=== PATIENT | female | born 1960 | race Caucasian/White ===

== ENCOUNTER 2019-02-24 11:51 | Emergency (ER) | payer OTHER ==
--- NOTE | 2019-02-24 12:20 | ER Document Report ---
ED Medical Screen (RME) - General Chief Complaint: Feet Swelling Stated Complaint: POST OP PROBLEMS Time Seen by Provider: 02/24/19 12:17 Mode of Arrival: Ambulatory Information source: Patient Notes: 58-year-old female presents to ED for complaint of bilateral pedal edema. 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 She states that 2 weeks after the surgery she was given the okay by her surgeon to move to this area. She states she could not drive in the truck but she could fly. On February 15 she flew to [place]. She states she drove to [place] only stopping [address] She states then yesterday she drove to [place] and back. She states the swelling started about 2 weeks ago when she drove to [place] and is slowly increased even more so after driving to [place]. I have greeted and performed a rapid initial assessment of this patient. A comprehensive ED assessment and evaluation of the patient, analysis of test results and completion of medical decision making process will be conducted by an additional ED providers. Dictation of this chart was performed using voice recognition software; therefore, there may be some unintended grammatical errors. TRAVEL OUTSIDE OF THE [place] IN LAST 30 DAYS: No - Related Data Allergies/Adverse Reactions: bupropion [From Wellbutrin] Allergy (Verified 02/24/19 11:54) Penicillins Allergy (Verified 02/24/19 11:54) Bee stings Allergy (Uncoded 02/24/19 11:54) Physical Exam - Vital signs Vitals: Temp Pulse Resp BP Pulse Ox 98.6 F 71 16 142/73 H 96 02/24/19 11:59 02/24/19 11:59 02/24/19 11:59 02/24/19 11:59 02/24/19 11:59 Course - Vital Signs Vital signs: Temp Pulse Resp BP Pulse Ox 98.6 F 71 16 142/73 H 96 02/24/19 11:59 02/24/19 11:59 02/24/19 11:59 02/24/19 11:59 02/24/19 11:59
[2019-02-24 12:57] LABS: ABSOLUTE BASOPHILS # (AUTO) 0.1 10^3/uL (0.0-0.2); ABSOLUTE EOSINOPHILS # (AUTO) 0.3 10^3/uL (0.0-0.6); ABSOLUTE LYMPHOCYTES (AUTO) 1.7 10^3/uL (0.5-4.7); ABSOLUTE MONOCYTES (AUTO) 0.4 10^3/uL (0.1-1.4); ABSOLUTE NEUT (AUTO) 3.7 10^3/uL (1.7-8.2); EOSINOPHILS % (AUTO) 5.2 % (0-6); HEMATOCRIT 35.7 % (36.0-47.0); HEMOGLOBIN 11.9 g/dL (12.0-15.5); LYMPHOCYTES % (AUTO) 28.2 % (13-45); MEAN CORPUSCULAR HEMOGLOBIN 26.2 pg (27.0-33.4); MEAN CORPUSCULAR HGB CONC 33.2 g/dL (32.0-36.0); MEAN CORPUSCULAR VOLUME 79 fl (80-97); MONOCYTES % (AUTO) 5.7 % (3-13); PLATELET COUNT 235 10^3/uL (150-450); RED BLOOD COUNT 4.53 10^6/uL (3.72-5.28); RED CELL DISTRIBUTION WIDTH 16.5 % (11.5-14.0); SEGMENTED NEUTROPHILS % (AUTO) 59.9 % (42-78); TOTAL CELLS COUNTED % (AUTO) 100 %; WHITE BLOOD COUNT 6.2 10^3/uL (4.0-10.5)
[2019-02-24 13:35] LABS: ALANINE AMINOTRANSFERASE 30 U/L (9-52); ALKALINE PHOSPHATASE 86 U/L (38-126); ANION GAP 7 (5-19); ASPARTATE AMINO TRANSFERASE 21 U/L (14-36); BILIRUBIN,DIRECT 0.2 mg/dL (0.0-0.4); BILIRUBIN,TOTAL 0.4 mg/dL (0.2-1.3); BLOOD UREA NITROGEN 14 mg/dL (7-20); CALCIUM 9.8 mg/dL (8.4-10.2); CARBON DIOXIDE 28 mmol/L (22-30); CHLORIDE 104 mmol/L (98-107); GLUCOSE 121 mg/dL (75-110); SODIUM 139.1 mmol/L (137-145); TOTAL PROTEIN 6.8 g/dL (6.3-8.2)
--- NOTE | 2019-02-24 14:58 | RADIOLOGY REPORT (SQ) ---
EXAM DESCRIPTION: VENOUS BILATERAL LOWER COMPLETED DATE/TIME: 02/24/2019 2:50 pm REASON FOR STUDY: Recent arterial surgery, long drives and airplane COMPARISON: None. TECHNIQUE: Dynamic and static mendoza scale and color images acquired of both lower extremity venous sy stems. Selected spectral images acquired with additional compression and augmentation maneuvers. Imag es stored on PACS. LIMITATIONS: None. FINDINGS: RIGHT LEG COMMON FEMORAL AND FEMORAL: Normal phasicity, compression and augmentation. No visualized echogenic m aterial on mendoza scale. No defects on color images. POPLITEAL: Normal compression and augmentation. No visualized echogenic material on mendoza scale. No de fects on color images. CALF VESSELS: Normal compression and augmentation. No visualized echogenic material on mendoza scale. No defects on color image. GSV AND SSV: Normal compression. No visualized echogenic material on mendoza scale. No defects on color images. ANY DEEP VENOUS INSUFFICIENCY: Not evaluated. ANY EVIDENCE OF POPLITEAL CYST: No. OTHER: No other significant finding. LEFT LEG COMMON FEMORAL AND FEMORAL: Normal phasicity, compression and augmentation. No visualized echogenic m aterial on mendoza scale. No defects on color images. POPLITEAL: Normal compression and augmentation. No visualized echogenic material on mendoza scale. No de fects on color images. CALF VESSELS: Normal compression and augmentation. No visualized echogenic material on mendoza scale. No defects on color images. GSV AND SSV: Normal compression. No visualized echogenic material on mendoza scale. No defects on color images. ANY DEEP VENOUS INSUFFICIENCY: Not evaluated. ANY EVIDENCE POPLITEAL CYST: No. OTHER: No other significant finding. IMPRESSION: NO EVIDENCE DVT OR SVT IN EITHER LEG. TECHNICAL DOCUMENTATION: JOB ID: [id number] [employer]- All Rights Reserved Reading location - IP/workstation name: [email or web address] [email or web address]
--- NOTE | 2019-02-24 18:12 | ER Document Report ---
ED Extremity Problem, Lower - General Chief Complaint: Feet Swelling Stated Complaint: POST OP PROBLEMS Time Seen by Provider: 02/24/19 12:17 [facility] Care Provider: [facility] [[facility]] - Follow up as needed Mode of Arrival: Ambulatory Information source: Patient TRAVEL OUTSIDE OF THE [place] IN LAST 30 DAYS: No - HPI Location: Leg Occurred: Last week Onset/Duration: Gradual, Constant Quality of pain: No pain Other injuries: 58-year-old female with 1 to 2 weeks long of lower semi-swelling. She took a plane flight from [place] to [place]. Since then 2 days after arrival she had swelling in both legs. No real pain in the calves no shortness of breath on December 29 of this year she had aortobifem bypass at [facility]. This is the first time though that she is complained of swelling in the legs. No fevers no redness no trauma. She says she is trying to get up and walk around the plane during the flight. - Related Data Allergies/Adverse Reactions: bupropion [From Wellbutrin] Allergy (Verified 02/24/19 11:54) Penicillins Allergy (Verified 02/24/19 11:54) Bee stings Allergy (Uncoded 02/24/19 11:54) Past Medical History - General Information source: Patient - Social History Smoking Status: Unknown if Ever Smoked Chew tobacco use (# tins/day): No Frequency of alcohol use: None Drug Abuse: None Family History: Reviewed & Not Pertinent Patient has suicidal ideation: No Patient has homicidal ideation: No - Past Medical History Cardiac Medical History: Reports: Hx Hypercholesterolemia, Hx Peripheral Vascular Disease Renal/ Medical History: Denies: Hx Peritoneal Dialysis GI Medical History: Reports: Hx Gastroesophageal Reflux Disease - erosion in stomach Past Surgical History: Reports: Hx Cholecystectomy Review of Systems - Review of Systems Cardiovascular: Edema. denies: Chest pain Respiratory: denies: Short of breath Physical Exam - Vital signs Vitals: Temp Pulse Resp BP Pulse Ox 98.6 F 71 16 142/73 H 96 02/24/19 11:59 02/24/19 11:59 02/24/19 11:59 02/24/19 11:59 02/24/19 11:59 - Notes Notes: PHYSICAL EXAMINATION: GENERAL: Well-appearing, well-nourished and in no acute distress. HEAD: Atraumatic, normocephalic. EYES: Pupils equal round and reactive to light, extraocular movements intact, sclera anicteric, conjunctiva are normal. ENT: nares patent, oropharynx clear without exudates. Moist mucous membranes. NECK: Normal range of motion, supple without lymphadenopathy LUNGS: Breath sounds clear to auscultation bilaterally and equal. No wheezes rales or rhonchi. HEART: Regular rate and rhythm without murmurs ABDOMEN: Soft, nontender, normoactive bowel sounds. No guarding, no rebound. No masses appreciated. EXTREMITIES: Normal range of motion, 2-3+ pitting edema bilateral lower extremities. Positive palpable pulses bilateral lower extremities.. No cyanosis. NEUROLOGICAL: No focal neurological deficits. Moves all extremities spontaneously and on command. PSYCH: Normal mood, normal affect. SKIN: Warm, Dry, normal turgor, no rashes or lesions noted. Course - Vital Signs Vital signs: Temp Pulse Resp BP Pulse Ox 98.6 F 71 16 142/73 H 96 02/24/19 11:59 02/24/19 11:59 02/24/19 11:59 02/24/19 11:59 02/24/19 11:59 - Laboratory Result Diagrams: 02/24/19 12:32 02/24/19 12:32 Laboratory results interpreted by me: 02/24/19 02/24/19 12:32 12:32 Hgb 11.9 L Hct 35.7 L MCV 79 L MCH 26.2 L RDW 16.5 H Glucose 121 H - Transfer of Care Notes: 02/24/19 18:11 Doppler pulses in both extremities done at the bedside. With good signal. Patient had a ultrasound of the lower extremities. Shows no DVT. 02/24/19 18:12 I will start this patient on 40 mg of Lasix for the next 3 to 4 days. Discharge - Discharge Clinical Impression: Bilateral lower extremity edema Condition: Stable Disposition: HOME, SELF-CARE Prescriptions: Furosemide [Lasix 40 mg Tablet] 40 mg PO QAM #4 tablet Referrals: [facility] [Primary Care [facility]] - Follow up as needed
[2019-02-24] MEDS ORDERED: FUROSEMIDE 40 MG TABLET PO ONE (18:13)
[2019-02-24 18:57] VITALS: BP 149/82
== END 2019-02-24 18:56 | disposition home or self-care (01) ==
LOC: ER 11:51
DX: R60.0 Localized edema (principal); Z88.8 Allergy status to other drugs, medicaments and biological substances; Z88.0 Allergy status to penicillin; Z91.030 Bee allergy status
CPT/HCPCS: 36415; 80053; 85025; 93970; 99284

== ENCOUNTER 2019-05-21 15:18 | Emergency (ER) | payer OTHER ==
[2019-05-21] MEDS ORDERED: OXYCODONE-ACETAMINOPHEN 5-325 MG TABLET PO ONE (15:35)
[2019-05-21 15:52] VITALS: BP 136/80
--- NOTE | 2019-05-21 16:13 | RADIOLOGY REPORT (SQ) ---
EXAM DESCRIPTION: FINGER RIGHT COMPLETED DATE/TIME: 05/21/2019 4:00 pm REASON FOR STUDY: foreign body COMPARISON: None. EXAM PARAMETERS: NUMBER OF VIEWS: Three views. TECHNIQUE: AP, lateral and oblique radiographic images acquired of the right hand. LIMITATIONS: None. FINDINGS: MINERALIZATION: Normal. BONES: No acute fracture or dislocation. No worrisome bone lesions. JOINTS: No effusion. SOFT TISSUES: No significant soft tissue swelling. No radiopaque foreign body. OTHER: No other significant finding. IMPRESSION: NO FRACTURE.No radiopaque foreign body. TECHNICAL DOCUMENTATION: JOB ID: [id number] [place]-72 2010 [employer]- All Rights Reserved Reading location - IP/workstation name: [email or web address]
--- NOTE | 2019-05-21 16:33 | ER Document Report ---
HPI - HPI Time Seen by Provider: 05/21/19 15:27 Pain Level: 2 Notes: Patient is a 58-year-old female presenting to the emergency department after being stung by a stingray. Patient reports she was stung in the right index finger just prior to arrival while she was fishing. She reports last tetanus was in 2014. She denies any other injuries or complaints. - CONSTITUTIONAL Constitutional: DENIES: Chills - MUSCULOSKELETAL Musculoskeletal: REPORTS: Extremity pain Past Medical History - General Information source: Patient - Social History Smoking Status: Current Every Day Smoker Chew tobacco use (# tins/day): No Frequency of alcohol use: Occasional Drug Abuse: None Family History: Reviewed & Not Pertinent Patient has suicidal ideation: No Patient has homicidal ideation: No - Past Medical History Cardiac Medical History: Reports: Hx Hypercholesterolemia, Hx Peripheral Vascular Disease Renal/ Medical History: Denies: Hx Peritoneal Dialysis GI Medical History: Reports: Hx Gastroesophageal Reflux Disease - erosion in stomach Past Surgical History: Reports: Hx Cholecystectomy Vertical Provider Document - CONSTITUTIONAL Notes: PHYSICAL EXAMINATION: GENERAL: Well-appearing, well-nourished and in no acute distress. HEAD: Atraumatic, normocephalic. EYES: Pupils equal round extraocular movements intact, conjunctiva are normal. ENT: Nares patent NECK: Normal range of motion LUNGS: No respiratory distress Musculoskeletal: Normal range of motion of the right index finger, no swelling noted, cap refill less than 3 seconds. NEUROLOGICAL: Normal speech, normal gait. PSYCH: Normal mood, normal affect. SKIN: Puncture wound noted to right index finger, cap refill less than 3 seconds. No obvious foreign body. - INFECTION CONTROL TRAVEL OUTSIDE OF THE [place] IN LAST 30 DAYS: No Course - Re-evaluation Re-evalutation: Extremity was soaked in warm water multiple times. She was given medication for pain here in the emergency department. X-ray showed no retained foreign body. Will start patient on appropriate antibiotics for stingray sting. Finger X-Ray 05/21/19 00:00 IMPRESSION: NO FRACTURE.No radiopaque foreign body. The patient's emergency department workup and current diagnosis were explained to the patient and or family. Follow-up instructions were provided. Medications if prescribed were discussed. Instructions for when to return to the emergency department including specific worrisome symptoms were discussed with the patient and/or family. - Vital Signs Vital signs: Temp Pulse Resp BP Pulse Ox 98.1 F 84 18 136/80 H 96 05/21/19 15:44 05/21/19 15:44 05/21/19 15:44 05/21/19 15:44 05/21/19 15:44 Discharge - Discharge Clinical Impression: Contact with stingray as cause of accidental injury Condition: Stable Disposition: HOME, SELF-CARE Additional Instructions: Please take antibiotic as prescribed. Take ibuprofen 600 mg every 6 hours for pain and inflammation. Use your oxycodone for severe pain only. You may soak the extremity in warm water if this helps with pain. Return to the emergency department with any new or worsening symptoms such as increased pain, increased swelling or development of fever. Prescriptions: Doxycycline Hyclate 100 mg PO BID #20 capsule Referrals: [facility] [Primary Care Provider] - Follow up as needed
== END 2019-05-21 16:40 | disposition home or self-care (01) ==
LOC: ER 15:18
DX: T63.511A Toxic effect of contact with stingray, accidental (unintentional), initial encounter (principal); S61.230A Puncture wound without foreign body of right index finger without damage to nail, initial encounter; F17.200 Nicotine dependence, unspecified, uncomplicated
CPT/HCPCS: 99283

== ENCOUNTER → 2019-09-01 | Outpatient (CLI) | payer OTHER ==
--- NOTE | 2019-09-03 11:23 | XCELERA REPORT ---
[address] [address] Lower Extremity Arterial Evaluation Name: JOHN QUINTEROS Age: 59 yrs Gender: Female : 1960 Patient Status: Outpatient Patient Location: Study Date: 09/01/2019 01:34 PM Procedure: A color flow and duplex scan of the lower extremity arteries was performed bilaterally with velocity and waveform anaylsis. Ankle brachial indicies performed. Reason For Study: PVD H/O FEM POP BYPASS Ordering Physician: RAYMUNDO JIMENEZ Performed By: Shannon Paredes Measurements and Calculations Right Left ZOOGLER PSV 212.5 158.7 cm/sec Prox PFA PSV -204.3 -205.4cm/sec Prox SFA PSV -125.7 -128.9cm/sec Mid SFA PSV -118.2 -123.2cm/sec Dist SFA PSV -111.9 -69.8 cm/sec Prox Pop A PSV 64.9 75.1 cm/sec Dist LO PSV 43.7 71.3 cm/sec Dist VENDOR ANALYST PSV 115.0 80.8 cm/sec Jj Pedis PSV -33.6 -58.8 cm/sec Right Side Arterial Evaluation Normal velocity and triphasic waveforms noted from the Common Femoral artery to the Posterior Tibial . Biphasic with normal velocity in the Deep Femoral and biphasic with low normal velocity, moderate broadening in the Anterior Tibial artery. Ankle Brachial index 1.16. Left Side Arterial Evaluation Normal velocity and triphasic waveforms noted from the Common Femoral artery to the infrageniculate arteries. Ankle Brachial index 1.01. Interpretation Summary Mild hemodynamically significant lesions in the right lower extremity only, on duplex imaging, at rest. No hemodynamically significant lesions in the left lower extremity only, on duplex imaging, at rest. Duplex imaging, bilaterally normal except for slight changes at the right Anterior Tibial. This would not be expected to have much hemodynamic consequence. FIGUEROA's are normal, suggesting no significant arterial obstructive disease. : RAYMUNDO JIMENEZ [place]
== END ==
LOC: SP 13:01
PROVIDERS: ATTEND Internal Medicine
DX: I73.9 Peripheral vascular disease, unspecified (principal)
CPT/HCPCS: 93922; 93925